=== PATIENT | female | born 1965 | race Caucasian/White ===

== ENCOUNTER 2018-03-16 23:37 | Emergency (ER) | payer OTHER ==
[~2018-03-16] VITALS: Ht 175.3 cm; Wt 77.1 kg
[~2018-03-16 23:37] MED LIST: FIORICET 50-301 EACH PO; KETOROLAC TROME10 M1 PO; PROMETHAZINE12.5 M2 PO; ZOFRAN4 M2 SL
--- NOTE | 2018-03-17 00:12 | ED GI/GU/ABDOMINAL COMPLAINT ---
History of Present Illness General Chief Complaint: Abdominal Pain/Flank Pain Stated Complaint: PT C/O RT SIDE ABD PAIN Source: patient, old records Exam Limitations: no limitations Vital Signs & Intake/Output Vital Signs & Intake/Output Vital Signs Date Time Temp Pulse Resp B/P B/P Pulse O2 O2 Flow FiO2 Mean Ox Delivery Rate 03/17 0019 Room Air 03/16 2349 97.3 85 18 129/84 95 Room Air ED Intake and Output 03/17 0000 03/16 1200 Intake Total Output Total Balance Patient 170 lb Weight Weight Reported by Patient Measurement Method Allergies Coded Allergies: clindamycin ("FLU SYMPTOMS" 03/16/18) diphenhydramine (From BENADRYL) ("FIDGITY" 03/16/18) sulfamethoxazole (From BACTRIM) ("VERY COLD" 03/16/18) trimethoprim (From BACTRIM) ("VERY COLD" 03/16/18) vancomycin ("FLU SYMPTOMS 03/16/18) Reconcile Medications Butalb/Acetaminophen/Caffeine (Fioricet 50-300-40 MG Capsule) 1 EACH CAPSULE 1 TAB PO Q6 PRN HEADACHE Ondansetron HCl (Zofran) 4 MG TABLET 1 TAB SL Q4-6 PRN NAUSEA Triage Note: TRIAGE: PATIENT TO ER FROM HOME W/ R SIDE ABD PAIN "WHERE MY APPENDIX IS," SINCE THIS AM. REPORTS +PASSING GAS, "FEELS BLAOTED." PAIN INC W/ WALKING AND W/ PALPATION. +DIARRHEA X1-2 HOURS. DENIES VOMITTING, SLIGHT NAUSEA. HX MRSA AND WOUND VAC S/P JUSTICE RAY, REPORTS HAS SINCE HEALED, "I HAD EVERYTHING GO WRONG WITH THAT SURGERY THAT COULD HAVE GONE WRONG." Triage Nurses Notes Reviewed? yes ? n Is pt currently ? No HPI: Patient states that since this morning, shortly after waking up, she has been having a sharp shooting pain as well as abdominal bloating in her right mid quadrant. The pain is constant. The pain worsens with walking. Positive anorexia. No nausea or vomiting. No constipation or diarrhea. No radiation of the pain. The pain is 8 out of 10. Past History Travel History Traveled to [place] past 21 day No Medical History Any Pertinent Medical History? see below for history Neurological: migraine EENT: R EAR LOSS OPF HEARING Cardiovascular: NONE Respiratory: NONE Gastrointestinal: NONE Hepatic: NONE Renal: NONE Musculoskeletal: MRSA WOUND VAC S/P TUMMY TUCK Psychiatric: NONE Endocrine: NONE Blood Disorders: NONE Cancer(s): NONE CASH REGISTER OPERATOR/Reproductive: OVARIAN CYST Surgical History Surgical History: cholecystectomy Psychosocial History What is your primary language Zambian Tobacco Use: Current Daily Use Daily Tobacco Use Amount/Type: => 5 Cigarettes daily ETOH Use: occasional use Illicit Drug Use: denies illicit drug use Family History Hx Contributory? No Review of Systems Review of Systems Constitutional: Reports: no symptoms. EENTM: Reports: no symptoms. Respiratory: Reports: no symptoms. Cardiovascular: Reports: no symptoms. GI: Reports: see HPI, abdominal pain, distention. Genitourinary: Reports: no symptoms. Musculoskeletal: Reports: no symptoms. Skin: Reports: no symptoms. Neurological/Psychological: Reports: no symptoms. Hematologic/Endocrine: Reports: no symptoms. Immunologic/Allergic: Reports: no symptoms. All Other Systems: Reviewed and Negative Physical Exam Physical Exam General Appearance: well developed/nourished, alert, awake, mild distress Head: atraumatic, normal appearance Eyes: Bilateral: PERRL, EOMI. Ears, Nose, Throat, Mouth: hearing grossly normal, moist mucous membrane Neck: normal inspection, supple, full range of motion Respiratory: normal breath sounds, chest non-tender, no respiratory distress, lungs clear Cardiovascular: regular rate/rhythm, normal peripheral pulses Gastrointestinal: normal bowel sounds, soft, no organomegaly, guarding, tenderness Back: normal inspection, normal range of motion Extremities: normal range of motion Neurologic/Psych: no motor/sensory deficits, awake, alert, oriented x 3, normal gait, normal mood/affect Skin: intact, normal color, warm/dry Core Measures ACS in differential dx? No Sepsis Present: No Sepsis Focused Exam Completed? No Progress Differential Diagnosis: appendicitis, bowel obstruction, diverticulitis, gastritis, hepatitis, ischemic bowel, inflamm bowel dis, UTI/pyelo Plan of Care: Orders Procedure Date/time Status LIPASE 03/17 001 Complete COMPREHENSIVE METABOLIC PANEL 03/17 001 Complete CBC WITHOUT DIFFERENTIAL 03/17 12 Complete AMYLASE 03/17 12 Complete URINALYSIS 03/16 2353 Complete Laboratory Tests 03/17/18 0020: Anion Gap 12, Estimated GFR > 60, BUN/Creatinine Ratio 23.8, Glucose 102 H, Calcium 9.9, Total Bilirubin 0.4, AST 17, ALT 20, Alkaline Phosphatase 101, Total Protein 7.5, Albumin 4.5, Globulin 3.0, Albumin/Globulin Ratio 1.5, Amylase 41, Lipase 62, CBC w Diff NO MAN DIFF REQ, RBC 4.40, MCV 92.1, MCH 31.6 H, MCHC 34.3, RDW 12.9, MPV 7.7, Gran % 67.5, Lymphocytes % 25.6, Monocytes % 5.1, Eosinophils % 1.4, Basophils % 0.4, Absolute Granulocytes 6.7 H, Absolute Lymphocytes 2.6, Absolute Monocytes 0.5, Absolute Eosinophils 0.1, Absolute Basophils 0 03/16/18 5325: Urinalysis LIGHT H, Urine Color YEL, Urine Clarity CLEAR, Urine pH 6.0, Ur Specific [place] 1.010, Urine Protein NEG, Urine Ketones NEG, Urine Nitrite NEG, Urine Bilirubin NEG, Urine Urobilinogen 0.2, Ur Leukocyte Esterase NEG, Ur Microscopic SEDIMENT EXAMINED, Ur Epithelial Cells FEW, Urine Bacteria FEW H, Urine Hemoglobin SMALL H, Urine Glucose NEG Diagnostic Imaging: Viewed by Me: CT Scan. Discussed w/RAD: CT Scan. Radiology Impression: PATIENT: MARCIO LYLES PRESENT AGE: 52 PATIENT ACCOUNT NO: [id number] : 63 LOCATION: [facility] ORDERING PHYSICIAN: Christopher Haley MD SERVICE DATE: 03/17/18 EXAM TYPE: CAT - CT ABD & PELVIS W IV CONTRAST EXAMINATION: CT ABDOMEN AND PELVIS WITH CONTRAST CLINICAL INFORMATION: Right lower quadrant abdominal pain. COMPARISON: None TECHNIQUE: Multidetector volumetric imaging was performed of the abdomen and pelvis following IV administration of 95 mL of Optiray 320 intravenous contrast. Sagittal and coronal reformatted images were obtained on the technologist's workstation. DLP: 303 mGy-cm FINDINGS: LUNG BASES: Dependent atelectasis bilaterally. The visualized cardiac structures are unremarkable. LIVER, GALLBLADDER, AND BILIARY TREE: The liver is normal in size, shape, and attenuation. No focal hepatic lesion or biliary ductal dilatation is present. Cholecystectomy. PANCREAS: Unremarkable. SPLEEN: Unremarkable. ADRENAL GLANDS: Unremarkable. KIDNEYS AND URETERS: The kidneys are normal in size, shape, and attenuation. No hydronephrosis, hydroureter, or calculi seen. No perinephric stranding. BLADDER: Unremarkable. GASTROINTESTINAL TRACT: The stomach is unremarkable. The small bowel is normal in caliber. There is no obstruction. Normal appendix. There is mild wall thickening at the cecum with faint adjacent fat stranding. The remainder of the colon is unremarkable. Minimal sigmoid diverticulosis without diverticulitis. No free air or free fluid. ABDOMINAL WALL : No significant hernia is appreciated. LYMPH NODES: Normal. VASCULAR: Normal caliber aorta with mild atherosclerotic calcifications. PELVIC VISCERA: Uterus is not seen. No adnexal mass. OSSEOUS STRUCTURES: No acute or suspicious osseous abnormality. IMPRESSION: Normal appendix. Mild wall thickening at the cecum with faint adjacent fat stranding. This may represent mild colitis. DICTATED BY: Ed Nunez MD DATE/TIME DICTATED:03/17/18199 QUALITY ASSURANCE SUPERVISOR: MEGAN DATE/TIME TRANSCRIBED:03/17/18199 CONFIDENTIAL, DO NOT COPY WITHOUT APPROPRIATE AUTHORIZATION. <Electronically signed in Other Vendor System> SIGNED BY: Ed Nunez MD 03/17/18207 Initial ED EKG: none Comments: NO RELIEF FROM IV TORADOL. Laboratory CAT scan results discussed with the patient. Questions up and answered. Patient is stable for discharge. Departure Departure Disposition: HOME OR SELF CARE Condition: Stable Clinical Impression Primary Impression: Abdominal pain Secondary Impressions: Colitis Referrals: Sundeep DUNN,Matthew Molina (PCP/Family) Additional Instructions: FOLLOW UP WITH DR. KRUGER RETURN IF SYMPTOMS WORSEN OR FORANY CONCERNS Departure Forms: Customer Survey General Discharge Information Prescriptions: Current Visit Scripts Oxycodone HCl/Acetaminophen (Percocet 5-325 MG Tablet) 1-2 TAB PO Q6P PRN PAIN #16 TAB
[2018-03-17 00:34] LABS: ABSOLUTE BASOPHIL COUNT 0 /CUMM (0.0-0.2); ABSOLUTE EOSINOPHIL COUNT 0.1 /CUMM (0.0-0.7); ABSOLUTE GRANULOCYTE CT 6.7 /CUMM (1.4-6.5); ABSOLUTE LYMPH COUNT 2.6 /CUMM (1.2-3.4); ABSOLUTE MONOCYTE COUNT 0.5 /CUMM (0.10-0.60); BASOPHIL % 0.4 % (0.0-2.0); EOSINOPHIL % 1.4 % (0-5); GRANULOCYTE % 67.5 % (42.2-75.2); HEMATOCRIT 40.5 % (37-47); MEAN CORPUSCULAR HGB 31.6 PG (27.0-31.0); MEAN CORPUSCULAR HGB CONC 34.3 G/DL (33.0-37.0); MEAN CORPUSCULAR VOLUME 92.1 FL (81.0-99.0); MEAN PLATELET VOLUME 7.7 FL (7.4-10.4); PLATELET COUNT 309 /CUMM (130-400); RBC DISTRIBUTION WIDTH 12.9 % (11.5-14.5)
--- NOTE | 2018-03-17 02:08 | CT SCAN REPORT ---
EXAMINATION: CT ABDOMEN AND PELVIS WITH CONTRAST CLINICAL INFORMATION: Right lower quadrant abdominal pain. COMPARISON: None TECHNIQUE: Multidetector volumetric imaging was performed of the abdomen and pelvis following IV administration of 95 mL of Optiray 320 intravenous contrast. Sagittal and coronal reformatted images were obtained on the technologist's workstation. DLP: 303 mGy-cm FINDINGS: LUNG BASES: Dependent atelectasis bilaterally. The visualized cardiac structures are unremarkable. LIVER, GALLBLADDER, AND BILIARY TREE: The liver is normal in size, shape, and attenuation. No focal hepatic lesion or biliary ductal dilatation is present. Cholecystectomy. PANCREAS: Unremarkable. SPLEEN: Unremarkable. ADRENAL GLANDS: Unremarkable. KIDNEYS AND URETERS: The kidneys are normal in size, shape, and attenuation. No hydronephrosis, hydroureter, or calculi seen. No perinephric stranding. BLADDER: Unremarkable. GASTROINTESTINAL TRACT: The stomach is unremarkable. The small bowel is normal in caliber. There is no obstruction. Normal appendix. There is mild wall thickening at the cecum with faint adjacent fat stranding. The remainder of the colon is unremarkable. Minimal sigmoid diverticulosis without diverticulitis. No free air or free fluid. ABDOMINAL WALL: No significant hernia is appreciated. LYMPH NODES: Normal. VASCULAR: Normal caliber aorta with mild atherosclerotic calcifications. PELVIC VISCERA: Uterus is not seen. No adnexal mass. OSSEOUS STRUCTURES: No acute or suspicious osseous abnormality. IMPRESSION: Normal appendix. Mild wall thickening at the cecum with faint adjacent fat stranding. This may represent mild colitis.
[2018-03-17] MEDS ORDERED: PERCOCET 5-3251 EACH PO (02:21)
[2018-03-17 02:27] VITALS: BP 159/89
[2018-03-18] MEDS ORDERED: LEVOTHYROXINE75 MCG PO (11:43)
[2018-03-18] MEDS ORDERED: LISINOPRIL10 M1 PO (11:43)
[2018-03-18] MEDS ORDERED: PANTOPRAZOLE SO40 M1 PO (11:44)
[2018-03-18] MEDS ORDERED: AMLODIPINE BESYL5 M1 PO (11:44)
[2018-03-18] MEDS ORDERED: DICYCLOMINE HCL10 M1 PO (15:19)
[2018-03-18] MEDS ORDERED: ZOFRAN ODT4 M1 SL (15:19)
[2018-06-14] MEDS ORDERED: LIDOCAINE1 EACH TOP (14:07)
[2018-06-14] MEDS ORDERED: IMITREX50 M1 PO (14:08)
[2018-06-14] MEDS ORDERED: BUPROPION XL150 MG (14:08)
[2018-06-14] MEDS ORDERED: ADVAIR 100-501 EACH INH (14:08)
[2018-06-14] MEDS ORDERED: MEDROL4 M2 PO (18:39)
== END 2018-03-17 02:31 ==
LOC: ERH 23:37
PROVIDERS: Emergency Medicine
DX: K52.9 Noninfective gastroenteritis and colitis, unspecified (principal)
CPT/HCPCS: 74177; 81001; 96361; 96374; 96375; 96376; J1885

== ENCOUNTER 2018-03-18 11:08 | Emergency (ER) | payer OTHER ==
[~2018-03-18] VITALS: Ht 175.3 cm; Wt 77.1 kg
[~2018-03-18 11:08] MED LIST changes: +PERCOCET 5-3251 EACH PO
--- NOTE | 2018-03-18 11:16 | ED GI/GU/ABDOMINAL COMPLAINT ---
History of Present Illness General Chief Complaint: Abdominal Pain/Flank Pain Stated Complaint: RT SIDE ABDOMINAL PAIN (SEEN FRIDAY FOR SAME) Source: patient, old records Exam Limitations: no limitations Vital Signs & Intake/Output Vital Signs & Intake/Output Vital Signs Date Time Temp Pulse Resp B/P B/P Pulse O2 O2 Flow FiO2 Mean Ox Delivery Rate 03/18 1355 98.7 68 18 124/76 97 Room Air 03/18 1112 98.4 96 20 126/84 96 Room Air Allergies Coded Allergies: clindamycin ("FLU SYMPTOMS" 03/16/18) diphenhydramine (From BENADRYL) ("FIDGITY" 03/16/18) sulfamethoxazole (From BACTRIM) ("VERY COLD" 03/16/18) trimethoprim (From BACTRIM) ("VERY COLD" 03/16/18) vancomycin ("FLU SYMPTOMS 03/16/18) Reconcile Medications Amlodipine Besylate 5 MG TABLET 1 TAB PO DAILY HEART (Reported) Dicyclomine HCl 10 MG CAPSULE 1 CAP PO TID PRN pain Levothyroxine Sodium 75 MCG TABLET 1 TAB PO DAILY AC THYROID (Reported) Lisinopril 10 MG TABLET 1 TAB PO DAILY HEART (Reported) Ondansetron (Zofran Odt) 4 MG TAB.RAPDIS 1 TAB SL TID PRN nausea Oxycodone HCl/Acetaminophen (Percocet 5-325 MG Tablet) 5 MG-325 MG TABLET 1-2 TAB PO Q6P PRN PAIN Pantoprazole Sodium 40 MG TABLET.DR 1 TAB PO BID GI (Reported) Triage Note: C/O RIGHT SIDED ABDOMINAL PAIN SINCE FRIDAY MORNING. +NAUSEA. PT SEEN HERE ON FRIDAY FOR SAME. HAS APPT WITH GI DOCTOR ON 04/01/18. DENIES VOMITING OR DIARRHEA Triage Nurses Notes Reviewed? yes ? N Is pt currently ? No Onset: Gradual Duration: day(s): Timing: recent history Quality/Severity: severe, throbbing Severity Numbers: 9 Location: RIGHT ABDOMEN Radiation: no radiation HPI: 52YO female presents to ED complaining of right-sided abdominal pain x 3 days. Patient was seen here 2 days ago, CT scan showed possible colitis, patient started on pain medications and referred to GI. Patient has an appointment with GI for 03/30 however pain has been worsening. Patient states that pain is significantly worse with walking or moving in certain positions. Patient describes pain as constant, throbbing, 9/10, worse than when she was here on Friday. Patient reports smaller bowel movements than normal which have been loose. She also reports increasing nausea. Today patient was able to eat cereal. Patient denies fevers, chills, skin rash, sick contacts, urinary symptoms. (Barbara Almonte) Past History Travel History Traveled to [place] past 21 day No Medical History Any Pertinent Medical History? see below for history Neurological: migraine EENT: R EAR LOSS OPF HEARING Cardiovascular: NONE Respiratory: NONE Gastrointestinal: NONE Hepatic: NONE Renal: NONE Musculoskeletal: MRSA WOUND VAC S/P TUMMY TUCK Psychiatric: NONE Endocrine: NONE Blood Disorders: NONE Cancer(s): NONE STATION ATTENDANT/Reproductive: OVARIAN CYST Surgical History Surgical History: cholecystectomy Psychosocial History What is your primary language Polish Tobacco Use: Current Daily Use Daily Tobacco Use Amount/Type: => 5 Cigarettes daily ETOH Use: occasional use Illicit Drug Use: denies illicit drug use Family History Hx Contributory? No (Barbara Almonte) Review of Systems Review of Systems Constitutional: Reports: no symptoms. EENTM: Reports: no symptoms. Respiratory: Reports: no symptoms. Cardiovascular: Reports: no symptoms. GI: Reports: see HPI. Genitourinary: Reports: no symptoms. Musculoskeletal: Reports: no symptoms. Skin: Reports: no symptoms. Neurological/Psychological: Reports: no symptoms. Hematologic/Endocrine: Reports: no symptoms. Immunologic/Allergic: Reports: no symptoms. All Other Systems: Reviewed and Negative (Barbara Almonte) Physical Exam Physical Exam General Appearance: well developed/nourished, no apparent distress, alert, awake Head: atraumatic, normal appearance Eyes: Bilateral: normal appearance. Ears, Nose, Throat, Mouth: hearing grossly normal Neck: normal inspection, supple, full range of motion Respiratory: normal breath sounds, no respiratory distress, lungs clear Cardiovascular: regular rate/rhythm Gastrointestinal: normal bowel sounds, soft, no organomegaly, mid right adomenal tenderness, RLQ tenderness, -Rosving's sign Back: normal inspection, normal range of motion Extremities: normal range of motion Neurologic/Psych: awake, alert, oriented x 3 Skin: intact, normal color, warm/dry Core Measures ACS in differential dx? No Sepsis Present: No Sepsis Focused Exam Completed? No (Deb DUNLAPBarbara You) Progress Differential Diagnosis: appendicitis, bowel obstruction, diverticulitis, hepatitis, hernia, inflamm bowel dis, kidney stone, perforated viscous, SBO, COLITIS Plan of Care: Orders Procedure Date/time Status URINALYSIS 03/18 111 Complete LIPASE 03/18 111 Complete COMPREHENSIVE METABOLIC PANEL 03/18 1115 Complete CBC WITHOUT DIFFERENTIAL 03/18 1115 Complete AMYLASE 03/18 111 Complete Laboratory Tests 03/18/18 1216: Urine Color YEL, Urine Clarity CLEAR, Urine pH 6.0, Ur Specific [place] 1.010, Urine Protein NEG, Urine Ketones NEG, Urine Nitrite NEG, Urine Bilirubin NEG, Urine Urobilinogen 0.2, Ur Leukocyte Esterase NEG, Ur Microscopic SEDIMENT EXAMINED, Urine RBC RARE, Urine WBC RARE, Ur Epithelial Cells RARE, Urine Hemoglobin TRACE-LYSED, Urine Glucose NEG 03/18/18 1212: Anion Gap 12, Estimated GFR > 60, BUN/Creatinine Ratio 21.3, Glucose 96, Calcium 10.0, Total Bilirubin 0.5, AST 36, ALT 40, Alkaline Phosphatase 108, Total Protein 7.6, Albumin 4.6, Globulin 3.0, Albumin/Globulin Ratio 1.5, Amylase 47, Lipase 59, CBC w Diff NO MAN DIFF REQ, RBC 4.25, MCV 92.5, MCH 32.0 H, MCHC 34.6, RDW 13.1, MPV 7.7, Gran % 59.1, Lymphocytes % 33.7, Monocytes % 5.1, Eosinophils % 1.7, Basophils % 0.4, Absolute Granulocytes 4.1, Absolute Lymphocytes 2.3, Absolute Monocytes 0.4, Absolute Eosinophils 0.1, Absolute Basophils 0 Labs are stable, patient is reporting worsening abdominal pain compared to Friday's visit in the ER. Risks versus benefits to further CT scan imaging discussed with the patient, she elects to proceed with repeat CT scan to further rule out bowel obstruction/perforation/complication given worsening right sided pain. CT scan is unchanged from previous study. These findings were discussed with the patient. Dr. Salgado present to see and evaluate the patient. We will initiate Bentyl regarding her abdominal pain symptoms. Patient to follow-up with gastroenterology regarding her abdominal pain, she does require a colonoscopy for further assessment. Patient in no acute distress, nontoxic appearing, ambulatory here in the emergency Department without difficulty. The patient agrees with the plan of care. Diagnostic Imaging: Viewed by Me: CT Scan. Discussed w/RAD: CT Scan. Radiology Impression: PATIENT: MARCIO LYLES PRESENT AGE: 52 PATIENT ACCOUNT NO: [id number] : 63 LOCATION: [facility] ORDERING PHYSICIAN: Barbara DUNLAP SERVICE DATE: 03/18/18 EXAM TYPE: CAT - CT ABD & PELVIS W IV CONTRAST EXAMINATION: CT ABDOMEN AND PELVIS WITH CONTRAST CLINICAL INFORMATION: Worsening right abdominal pain. COMPARISON: CT abdomen and pelvis dated 03/17/2018. TECHNIQUE: Multidetector volumetric imaging was performed of the abdomen and pelvis following IV administration of 94 mL of Optiray 320 intravenous contrast. Sagittal and coronal reformatted images were obtained on the technologist's workstation. DLP: 308.31 mGy-cm FINDINGS: LUNG BASES: There is mild bibasilar linear scar/subsegmental atelectasis. LIVER, GALLBLADDER, AND BILIARY TREE: The liver is normal in size, shape, and attenuation. No focal hepatic lesion or biliary ductal dilatation is present. The gallbladder is surgically absent. PANCREAS: Unremarkable. SPLEEN: Unremarkable. ADRENAL GLANDS: Unremarkable. KIDNEYS AND URETERS: The kidneys are normal in size, shape, and attenuation. No hydronephrosis, hydroureter, or calculi seen. No perinephric stranding. BLADDER: Unremarkable. GASTROINTESTINAL TRACT: There is persistent mild fat stranding adjacent to the cecum. The appendix is again unremarkable. No obstruction, free intraperitoneal air or abscess is seen. There is no focal bowel wall thickening. There is no significant diverticulosis or diverticulitis. ABDOMINAL WALL: Periumbilical and bilateral inguinal surgical clips noted. No significant hernia defect is seen. LYMPH NODES: Normal. VASCULAR: There is moderate aortoiliac atherosclerotic change. No abdominal aortic aneurysm is seen. PELVIC VISCERA: The uterus is poorly identified and may be surgically absent. Please correlate with the patient's past surgical history. No pelvic mass, free fluid or lymphadenopathy is seen. OSSEOUS STRUCTURES: Unremarkable. IMPRESSION: There is persistent mild fat stranding at adjacent to the cecum, without definite wall thickening. Again, the possibility of mild colitis is raised. Neoplasm and typhlitis are considered less likely on the basis of this appearance. The appendix remains unremarkable. There is no obstruction, free intraperitoneal air or abscess. No diverticulosis or diverticulitis is seen. DICTATED BY: Michele Menchaca MD DATE/TIME DICTATED:07/28 AUTOMOTIVE FUEL SYSTEMS CONVERTER:MEGAN DATE/TIME TRANSCRIBED:03/18/181333 CONFIDENTIAL, DO NOT COPY WITHOUT APPROPRIATE AUTHORIZATION. <Electronically signed in Other Vendor System> SIGNED BY: Michele Menchaca MD 03/18/18 1356 Initial ED EKG: none (Barbara Almonte) Departure Departure Disposition: HOME OR SELF CARE Condition: Stable Clinical Impression Primary Impression: Abdominal pain Qualifiers: Abdominal location: right lower quadrant Qualified Code: R10.31 - Right lower quadrant pain Secondary Impressions: Colitis Referrals: Unknown Additional Instructions: Take Bentyl as prescribed as needed for abdominal pain. Take Zofran as prescribed as needed for nausea. You may continue Percocet as prescribed for pain. Follow-up with gastroenterology as discussed. Return if you have worsening symptoms or concerns. Please note that there might be incidental findings in your evaluation that are unrelated to the current emergency department visit. Please notify your primary care doctor about this emergency department visit in order to obtain and review all of the testing performed so that these incidental findings can be monitored as needed. If you had an x-ray performed, please understand that some fractures may not be seen on the initial set of x-rays. If your symptoms persist you might need a repeat set of x-rays to check for such a fracture. If you had a laceration evaluated, please understand that foreign bodies such as glass or wood may not be visible to the naked eye or on plain x-rays. If the wound becomes red, swollen, increasingly more painful or if there is any drainage from the wound, please have it reevaluated by a physician for the possibility of a retained foreign body. If you're unable to follow up as outlined in the discharge instructions please return to the emergency department. Thank you for choosing the [facility] Emergency Department for your care. It was a pleasure to serve you today. Departure Forms: Customer Survey General Discharge Information Prescriptions: Current Visit Scripts Dicyclomine HCl 1 CAP PO TID PRN pain #30 CAP Ondansetron (Zofran Odt) 1 TAB SL TID PRN nausea #10 TAB (Barbara Almonte) PA/RECYCLING CREW SUPERVISOR Co-Sign Statement Statement: ED Attending supervision documentation- [X] I saw and evaluated the patient. I have also reviewed all the pertinent lab results and diagnostic results. I agree with the findings and the plan of care as documented in the PA's/RECYCLING CREW SUPERVISOR's documentation. [] I have reviewed the ED Record and agree with the PA's/RECYCLING CREW SUPERVISOR's documentation. [] Additions or exceptions (if any) to the PAs/RECYCLING CREW SUPERVISOR's note and plan are summarized below: [] Ongoing right lower quadrant pain. CT the abdomen and pelvis negative 2. I spoke with the supervisor road administrator for GI for GFP. We will get her in to follow up with GI this week. (Drew Salgado DO)
[2018-03-18] MEDS ORDERED: LISINOPRIL10 M1 PO (11:43)
[2018-03-18] MEDS ORDERED: LEVOTHYROXINE75 MCG PO (11:43)
[2018-03-18] MEDS ORDERED: AMLODIPINE BESYL5 M1 PO (11:44)
[2018-03-18] MEDS ORDERED: PANTOPRAZOLE SO40 M1 PO (11:44)
[2018-03-18 12:23] LABS: ABSOLUTE BASOPHIL COUNT 0 /CUMM (0.0-0.2); ABSOLUTE EOSINOPHIL COUNT 0.1 /CUMM (0.0-0.7); ABSOLUTE GRANULOCYTE CT 4.1 /CUMM (1.4-6.5); ABSOLUTE LYMPH COUNT 2.3 /CUMM (1.2-3.4); ABSOLUTE MONOCYTE COUNT 0.4 /CUMM (0.10-0.60); BASOPHIL % 0.4 % (0.0-2.0); EOSINOPHIL % 1.7 % (0-5); GRANULOCYTE % 59.1 % (42.2-75.2); HEMATOCRIT 39.4 % (37-47); MEAN CORPUSCULAR HGB CONC 34.6 G/DL (33.0-37.0); MEAN CORPUSCULAR VOLUME 92.5 FL (81.0-99.0); MEAN PLATELET VOLUME 7.7 FL (7.4-10.4); PLATELET COUNT 301 /CUMM (130-400); RBC DISTRIBUTION WIDTH 13.1 % (11.5-14.5); RED BLOOD CELL CT 4.25 /CUMM (4.20-5.40); WHITE BLOOD CELL COUNT 6.9 /CUMM (4.8-10.8)
--- NOTE | 2018-03-18 13:53 | CT SCAN REPORT ---
EXAMINATION: CT ABDOMEN AND PELVIS WITH CONTRAST CLINICAL INFORMATION: Worsening right abdominal pain. COMPARISON: CT abdomen and pelvis dated 03/17/2018. TECHNIQUE: Multidetector volumetric imaging was performed of the abdomen and pelvis following IV administration of 94 mL of Optiray 320 intravenous contrast. Sagittal and coronal reformatted images were obtained on the technologist's workstation. DLP: 308.31 mGy-cm FINDINGS: LUNG BASES: There is mild bibasilar linear scar/subsegmental atelectasis. LIVER, GALLBLADDER, AND BILIARY TREE: The liver is normal in size, shape, and attenuation. No focal hepatic lesion or biliary ductal dilatation is present. The gallbladder is surgically absent. PANCREAS: Unremarkable. SPLEEN: Unremarkable. ADRENAL GLANDS: Unremarkable. KIDNEYS AND URETERS: The kidneys are normal in size, shape, and attenuation. No hydronephrosis, hydroureter, or calculi seen. No perinephric stranding. BLADDER: Unremarkable. GASTROINTESTINAL TRACT: There is persistent mild fat stranding adjacent to the cecum. The appendix is again unremarkable. No obstruction, free intraperitoneal air or abscess is seen. There is no focal bowel wall thickening. There is no significant diverticulosis or diverticulitis. ABDOMINAL WALL: Periumbilical and bilateral inguinal surgical clips noted. No significant hernia defect is seen. LYMPH NODES: Normal. VASCULAR: There is moderate aortoiliac atherosclerotic change. No abdominal aortic aneurysm is seen. PELVIC VISCERA: The uterus is poorly identified and may be surgically absent. Please correlate with the patient's past surgical history. No pelvic mass, free fluid or lymphadenopathy is seen. OSSEOUS STRUCTURES: Unremarkable. IMPRESSION: There is persistent mild fat stranding at adjacent to the cecum, without definite wall thickening. Again, the possibility of mild colitis is raised. Neoplasm and typhlitis are considered less likely on the basis of this appearance. The appendix remains unremarkable. There is no obstruction, free intraperitoneal air or abscess. No diverticulosis or diverticulitis is seen.
[2018-03-18 13:55] VITALS: BP 124/76
[2018-03-18] MEDS ORDERED: ZOFRAN ODT4 M1 SL (15:19)
[2018-03-18] MEDS ORDERED: DICYCLOMINE HCL10 M1 PO (15:19)
== END 2018-03-18 15:30 ==
LOC: ERH 11:08
PROVIDERS: Physician Assistant
DX: K52.9 Noninfective gastroenteritis and colitis, unspecified (principal)
CPT/HCPCS: 74177; 81001; 96374; 96375; J1885; J2405